=== PATIENT | male | born 1985 | race Caucasian/White ===

== ENCOUNTER 2016-10-24 15:01 | Emergency (ER) | payer BC ==
--- NOTE | 2016-10-24 15:13 | Emergency Department Record ---
History of Present Illness - General Chief complaint: Extremity Problem Stated complaint: L SHOULDER PAIN Time Seen by Provider: 10/24/16 15:13 Source: Patient Mode of Arrival: Ambulatory Limitations: No limitations - History of Present Illness Initial comments: The patient is here due to R sided neck and shoulder pain for about a week. He denies any trauma, injury or fall and states he just woke up with the pain a week ago and it has not gotten better since. There is no arm or leg numbness, tingling or weakness. The patient denies any hx of similar problems in the past. MD Complaint: Neck Pain Onset/Timin -: Week(s) Location: Right, Shoulder History of Same: No Radiation: Distal Severity scale (1-10): 8 Quality: Aching Consistency: Constant Improves with: Nothing Worsens with: Other Associated Symptoms: Denies other symptoms - Related Data Home Medications Medication Instructions Recorded Confirmed Last Taken Atorvastatin Calcium [Lipitor] 20 mg PO DAILY 10/24/16 10/24/16 Unknown Omeprazole [Prilosec] 20 mg PO DAILY 10/24/16 10/24/16 Unknown Previous Rx's Medication Instructions Recorded Cyclobenzaprine HCl [Flexeril] 10 mg PO TID PRN #20 tablet 10/24/16 Naproxen [Naprosyn] 250 mg PO BID #14 tablet 10/24/16 Allergies Allergy/AdvReac Type Severity Reaction Status Date / Time No Known Drug Allergies Allergy Verified 03/06/16 15:47 Travel Screening - Travel/Exposure Within Last 30 Days Have you traveled within the last 30 days?: No Review of Systems Constitutional: Denies: Chills, Fever Eyes: Denies: Eye discharge ENT: Denies: Congestion Respiratory: Denies: Cough, Dyspnea Past Medical History - SOCIAL HISTORY Smoking Status: Never smoker Alcohol Use: None Drug Use: None - RESPIRATORY Hx Respiratory Disorders: No - CARDIOVASCULAR Hx Cardio Disorders: Yes Comment:: high cholesterol - NEURO Hx Neuro Disorders: No - GI Hx GI Disorders: Yes Hx Reflux: Yes - Hx Genitourinary Disorders: No - ENDOCRINE Hx Endocrine Disorders: Yes Hx Diabetes: Yes (unsure of names of medications but not insulin) - MUSCULOSKELETAL Hx Musculoskeletal Disorders: Yes - PSYCH Hx Psych Problems: No - HEMATOLOGY/ONCOLOGY Hx Hematology/Oncology Disorders: No Family Medical History Any Significant Family History?: No Physical Exam - General General Appearance: Alert, Oriented x3, Cooperative, No acute distress - Head Head exam: Atraumatic, Normocephalic, Normal inspection - Eye Eye exam: Normal appearance, PERRL - Neck Neck exam: Normal inspection, Full ROM, Tenderness (There is tenderness to the R poserior cervical muscles and R trapezius.) - Respiratory Respiratory exam: Normal lung sounds bilaterally. negative: Respiratory distress - Cardiovascular Cardiovascular Exam: Regular rate, Normal rhythm, Normal heart sounds - Extremities Extremities exam: Normal inspection, Full ROM (There is normal ROM to the R shoulder with pain on full flexion, extension and abduction.), Normal capillary refill, Tenderness. negative: Calf tenderness, Joint swelling, Pedal edema - Neurological Neurological exam: Alert, Normal gait, Oriented X3, Reflexes normal (The upper ext. reflexes are 2+ and equal all groups bilateral upper ext.). negative: Abnormal gait, Motor sensory deficit Course Vital Signs 10/24/16 15:06 Temperature 97.6 F Pulse Rate 83 Respiratory 20 Rate Blood Pressure 135/90 Pulse Ox 96 - Reevaluation(s) Reevaluation #1: The patient denies any new symptoms and is resting comfortably. I did discuss the neg xrays with the patient and the need for F/u. 10/24/16 15:54 Medical Decision Making - Data Complexity MDM Data: X-Ray Ordered and/or Reviewed - Radiology Data Radiology results: Report reviewed (Cervical xrays: Neg per Rad.) Disposition Disposition: Discharge Clinical Impression: Acute Strain of Neck Muscle Qualifiers: Encounter type: initial encounter Qualified Code(s): S16.1XXA - Strain of muscle, fascia and tendon at neck level, initial encounter Disposition: Home, Self-Care Condition: (1) Good Instructions: Cervical Sprain (ED) Additional Instructions: Please take the Naprosyn for pain and use Flexeril when at home. Please see your PCP for recheck later this week or next week. Prescriptions: Cyclobenzaprine HCl [Flexeril] 10 mg PO TID PRN #20 tablet PRN Reason: Pain Naproxen [Naprosyn] 250 mg PO BID #14 tablet Forms: Patient Portal Access Time of Disposition: 15:55
[2016-10-24] MEDS: ACETAMINOPHEN 325 MG TAB PO ONE (15:44)
== END 2016-10-24 16:04 | disposition home or self-care (01) ==
LOC: ER 15:01
DX: S16.1XXA Strain of muscle, fascia and tendon at neck level, initial encounter (principal); M25.511 Pain in right shoulder; X58.XXXA Exposure to other specified factors, initial encounter
CPT/HCPCS: 72050; 99283